=== PATIENT | female | born 1960 | race Caucasian/White ===

== ENCOUNTER 2023-07-07 12:53 | Day surgery (SDC) | payer BC ==
[2023-07-07] VITALS (7 sets, daily range): BP systolic 101–152; BP diastolic 47–82; PULSE 58–92; RESP 15–18; TEMP 99.1; O2SAT 93–100
[~2023-07-07] VITALS: Ht 167.6 cm; Wt 47.5 kg
[~2023-07-07 12:53] MED LIST: CHLO25CA10 PO
[2023-07-07] MEDS ORDERED: LORazepam 0.5 MG tablet PO PRN (13:15)
[2023-07-07] MEDS ORDERED: normal saline 1,000 ML IV SCH (13:15)
[2023-07-07] MEDS ORDERED: diphenhydrAMINE 25mg capsule PO PRN (13:15)
[2023-07-07] MEDS ORDERED: APIX5TAB3 PO (13:27)
[2023-07-07] MEDS ORDERED: HYDR-3972 PO (13:27)
[2023-07-07] MEDS ORDERED: ACYC-129 PO (13:27)
[2023-07-07] MEDS ORDERED: CLON1TAB12 PO (13:27)
[2023-07-07] MEDS ORDERED: ALBU18HF2 (13:27)
[2023-07-07] MEDS ORDERED: TRAZ-251 PO (13:27)
[2023-07-07] MEDS ORDERED: IBUP-24 PO (13:27)
[2023-07-07] MEDS ORDERED: ATOR40TA72 PO (13:27)
[2023-07-07] MEDS ORDERED: LIDOcaine 1% (10mg/ml) 2ml vial ONE (13:49)
[2023-07-07] MEDS ORDERED: fentaNYL/PF 50MCG/1 ML 2ML syringe ONE (13:49)
[2023-07-07] MEDS ORDERED: verapamil 2.5 mg/ml inj IV ONE (13:49)
[2023-07-07] MEDS ORDERED: heparin 1,000unit/ml 10ml vial 10 ML ONE (13:50)
[2023-07-07] MEDS ORDERED: midazolam 1 mg/ML 2ml injection ONE (13:50)
[2023-07-07] MEDS ORDERED: iohexol 350MG/ML 100ml bottle IV ONE (13:50)
[2023-07-07] MEDS ORDERED: nitroGLYCERIN 500mcg/5mL D5W 5 ML IV ONE (13:51)
[2023-07-07] MEDS ORDERED: HYDROmorphone 1 mg/ml syringe ONE (14:11)
[2023-07-07] MEDS ORDERED: HYDROcodone/acetaminophen 10/325mg tab PO PRN (15:10)
[2023-07-07] MEDS ORDERED: HYDROcodone/acetaminophen 5mg/325mg tablet PO PRN (15:10)
== END 2023-07-07 17:15 | disposition home or self-care (01) ==
LOC: SSTAY O 12:53
PROVIDERS: ATTEND Student in an Organized Health Care Education/Training Program
DX: R07.89 Other chest pain (principal); I25.10 Atherosclerotic heart disease of native coronary artery without angina pectoris; I10 Essential (primary) hypertension; E78.5 Hyperlipidemia, unspecified; F17.290 Nicotine dependence, other tobacco product, uncomplicated; Z86.718 Personal history of other venous thrombosis and embolism; Z79.899 Other long term (current) drug therapy; Z79.01 Long term (current) use of anticoagulants; Z88.5 Allergy status to narcotic agent; Z88.8 Allergy status to other drugs, medicaments and biological substances; Z82.49 Family history of ischemic heart disease and other diseases of the circulatory system
CPT/HCPCS: 93005; 93458; 99152; A6258; J1170; J1644; J2250; J3490; J7030; Q0163; Q9967; 99153; A4615; A6402; C1894; J3010